=== PATIENT | female | born 1960 | race Caucasian/White ===

== ENCOUNTER → 2024-08-17 | Outpatient (CLI) | payer BC, SELFPAY ==
[2024-08-17 15:14] LABS: Absolute Lymphocyte Count 1.62 X10^3/uL (0.83-4.51); Absolute Neutrophil Count 3.7 X10^3/uL (2.0-7.7); Basophil# 0.07 X10^3/uL; Basophil% 1.2 % (0-1); Eosinophil# 0.05 X10^3/uL; Eosinophils% 0.8 % (0-5); Hematocrit 37.9 % (37-47); Hemoglobin 12.3 g/dL (12.0-15.0); Lymphocyte # 1.62 X10^3/ul (0.83-4.51); Lymphocyte % 27.5 % (19-41); Mean Corp Hgb Conc 32.5 g/dL (32-36); Mean Corpuscular Hgb 28.8 pg (27.0-32.0); Mean Corpuscular Volume 88.8 fL (81-99); Mean Platelet Vol. 8.7 fl (6.2-12.0); Monocyte# 0.48 X10^3/uL; Monocyte% 8.1 % (0-10); NRBC Flagged by Analyzer 0 % (0-5); Neutrophil # 3.65 X10^3/uL (2.7-7.7); Neutrophil % 62.1 % (47-70); Platelet Count 233 K/mm3 (150-450); RBC Distribution Width CV 15.4 % (11.6-14.6); RBC Distribution Width SD 49.6 fl (35.1-43.9); Red Blood Count 4.27 M/mm3 (4.2-5.4); White Blood Count 5.9 K/mm3 (4.4-11.0)
[2024-08-17 15:33] LABS: ALB/GLOB Ratio 1.1 RATIO (0.9-2.4); AST(SGOT) 20 U/L (15-37); Alanine Aminotransfer ALT/SGPT 29 U/L (13-56); Albumin, Serum 3.7 g/dL (3.2-5.0); Alkaline Phosphatase 119 U/L (45-117); Anion Gap 5 (5-15); BUN 22 mg/dL (7-18); BUN/Creat Ratio 27.7 RATIO (10-20); Calcium,Total 9.5 mg/dL (8.5-10.1); Chloride 107 mmol/L (98-107); Cholesterol 129 mg/dL (200); Creatinine, Serum 0.79 mg/dL (0.55-1.02); EST Glomerular Filtration Rate 78 mL/min (>60); Est Glom Filt Rate - Afr Amer 94 mL/min (>60); Globulin 3.5 g/dL (2.2-4.2); Glucose 94 mg/dL (74-106); High Density Lipoprotein 41 mg/dL; Potassium 4.4 mmol/L (3.5-5.1); Protein, Total 7.2 g/dL (6.4-8.2); Sodium Level 140 mmol/L (136-145); Triglycerides 195 mg/dL; Very Low Density Lipoprotein 39 mg/dL (5-40)
== END | disposition home or self-care (01) ==
LOC: BFHLAB 13:54
PROVIDERS: PCP Nurse Practitioner Family; Visit Provider Nurse Practitioner Family
DX: Z00.01 Encounter for general adult medical examination with abnormal findings (principal)
CPT/HCPCS: 36415; 80053; 80061; 85025

== ENCOUNTER → 2024-12-03 | Outpatient (CLI) | payer BC, SELFPAY | END | disposition home or self-care (01) | PROVIDERS: PCP Nurse Practitioner Family; Referring Provider Nurse Practitioner Family; Visit Provider Nurse Practitioner Family | DX: Z12.4 Encounter for screening for malignant neoplasm of cervix (principal) | CPT/HCPCS: 88175; G0145 ==

== ENCOUNTER → 2025-01-12 | Outpatient (CLI) | payer BC, SELFPAY ==
--- NOTE | 2025-01-12 08:04 | BI_ITS ---
EXAM: SCRN MAMM (CAD)W/ARLENE BILAT 01/12/2025 CLINICAL HISTORY: F, Age 64 y/o , SCREENING TECHNIQUE: Bilateral screening digital breast tomosynthesis with 2D and 3D images. Computer aided detection. COMPARISON: Prior exam(s) dated 10/26/2020, 03/18/2009. FINDINGS: TISSUE DENSITY: The breast tissue is composed of scattered area of fibroglandular density. Bilateral Breast Mammographic Findings: No significant masses, calcifications or other abnormalities are identified. BI/SCRN MAMM (CAD)W/ARLENE BILAT IMPRESSION: Right Breast: BIRADS 1 NEGATIVE. Left Breast: BIRADS 1 NEGATIVE. OVERALL FINAL ASSESSMENT: BIRADS 1 NEGATIVE. RECOMMENDATION: Routine annual follow-up in 1 Year A letter with findings and recommendations will be mailed to the patient. Reading Location: [id number]
== END | disposition home or self-care (01) ==
LOC: OPBI 08:03
PROVIDERS: PCP Nurse Practitioner Family; Referring Provider Nurse Practitioner Family; Visit Provider Nurse Practitioner Family
DX: Z12.31 Encounter for screening mammogram for malignant neoplasm of breast (principal)
CPT/HCPCS: 77063; 77067

== ENCOUNTER 2025-02-08 05:20 | Day surgery (SDC) | payer BC, SELFPAY ==
[2025-02-08] VITALS (7 sets, daily range): BP systolic 88–116; BP diastolic 59–71; PULSE 63–70; RESP 16; TEMP 36.1–36.6; O2SAT 96–99; BMI 27.5
[2025-02-08] MEDS: Lactated Ringers 1,000 ML 15 ML IV (05:56)
--- NOTE | 2025-02-08 06:18 | PRE.ANES_ITS ---
ASA Classification* ASA Classification ASA Classification: 1 Assessment & Plan Anesthesia* Anesthesia Assessment Anesthesia Assessment: Discussed sedation and/or anesthesia options, risks, benefits, and alternatives with patient/parents/legal guardian/POA. Questions invited. The patient/parents/legal guardian/POA seems to understand and agrees to proceed with anesthesia plan. Reviewed the physical assessment, medical history, allergy history and patient home medications list prior to surgery/procedure/anesthetic and documented any changes. Performed airway and anesthesia risk assessments. Anesthesia Type Anesthesia Type: MAC History Source History Obtained from:: Patient and Chart Anesthesia Focused Assessment* Temperature: 97.5 F Pulse Rate: 70 Blood Pressure: 116/71 Respiratory Rate: 16 Pulse Ox: 98 Oxygen Delivery Method: Room Air Airway Assessment Mouth opens: >3 cm Mallampati Score: II Teeth Condition: Chipped/Broken (Small chip on teeth number 8& 9.) Neck Range of motion (ROM): Full ROM Labs Anesthesia Preop lab: CBC WBC 5.9 K/mm3 (4.4-11.0) 08/17/24 13:56 08/17/24 RBC 4.27 M/mm3 (4.2-5.4) 08/17/24 13:56 08/17/24 Hgb 12.3 g/dL (12.0-15.0) 08/17/24 13:56 08/17/24 Hct 37.9 % (37-47) 08/17/24 13:56 08/17/24 Plt Count 233 K/mm3 (150-450) 08/17/24 13:56 08/17/24 CHEMISTRY Potassium 4.4 mmol/L (3.5-5.1) 08/17/24 13:56 08/17/24 Sodium 140 mmol/L (136-145) 08/17/24 13:56 08/17/24 BUN 22 mg/dL (7-18) H 08/17/24 13:56 08/17/24 Creatinine 0.79 mg/dL (0.55-1.02) 08/17/24 13:56 08/17/24 Glucose 94 mg/dL (74-106) 08/17/24 13:56 08/17/24 COAG Pre-Assessment Diagnosis/Proposed Procedure Planned Operative Procedure(s): COLONOSCOPY Anesthesia History 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 When Was Last Pacemaker Check QUESTION #4 FULL TEXT: You/Your Family Experience fever (hyperthermia) with Anesthesia Last Oral Intake Last Oral intake: Last Oral Intake NPO since 23:30 02/08/25 05:46 Meds taken in AM with sips of No 02/08/25 05:46 water? Meds patient instructed to take am of surgery PONV PONV - oceanographer physical: PONV - oceanographer physical Female Yes 02/03/25 14:49 HX of Motion Sickness No 02/03/25 14:49 HX of N/V After Surgery No 02/03/25 14:49 Non-Smoker Yes 02/03/25 14:49 Duration of Surgery greater No 02/03/25 14:49 than 60 minutes Number of Risk Factors 2 02/03/25 14:49 PONV Score Moderate Risk 02/03/25 14:49 Height & Weight Height & Weight: Anesthesia: Height & Weight Height 5 ft 2 in 02/08/25 05:46 Weight: 68.22 kg 02/08/25 05:46 Body Mass Index (BMI) 27.5 02/08/25 05:46 Respiratory Assessment Respiratory Assessment - oceanographer physical: Respiratory Tract Infection Hx - oceanographer physical Hx Respiratory Tract Infection No 02/03/25 14:49 STOP Sleep Apnea STOP Sleep Apnea - oceanographer physical: STOP Sleep Apnea - oceanographer physical Hx Hypertension No 02/03/25 14:49 Hx Sleep Apnea No 02/03/25 14:49 CPAP BIPAP Do you snore loudly (louder No 02/03/25 14:49 than talking or can be heard Do you often feel tired/ No 02/03/25 14:49 fatigued/ sleepy during daytime? Has anyone observed you stop No 02/03/25 14:49 breathing during sleep? STOP Results Negative 02/03/25 14:49 QUESTION #5 FULL TEXT : Do you snore loudly (louder than talking or can be heard through closed doors)? 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 Specify any problems Hx of Preganancy in last 3 No 02/03/25 14:49 Months Nurse Filling Out Transfusion [email or web address] 02/03/25 14:49 & Questions: Date: 02/03/25 02/03/25 14:49 Time: 14:52 02/03/25 14:49 Patient unable to answer at this time (ie. confused, unrespo /Reproduction History /Reproductive History - oceanographer physical: /Reproductive Hx- oceanographer physical Hx Now Gestational Age (in weeks): EDC: Hx Hx Para Hx Section SAB Active Medications Active Medications: Current Medications Generic Name Dose Route Start Last Admin Trade Name Freq PRN Reason Stop Dose Admin Lactated Ringer's 1,000 mls @ 15 mls/hr 02/08/25 05:30 02/08/25 05:56 IV 15 mls/hr .Q48H IVONNE Administration PFSH Medical History Non-smoker Home Medications ?Medication ?Instructions ?Recorded ?Last Taken ?Type NK 02/03/25 Unknown History Allergy/AdvReac Type Severity Reaction Status Date / Time No Known Allergies Allergy Verified 02/08/25 05:44 Surgical History (Updated 02/03/25 @ 14:54 by Balaji Retana) Hx of tonsillectomy Social History Smoking Status: Never smoker Review of Systems (Anesthesia) ROS Narrative System reviewed and no additional complaints, except as documented.
--- NOTE | 2025-02-08 06:30 | COLBX_PTH ---
PATIENT: BEN WOODS LOC: EN U#:[id number] AGE/SX: 64/F ROOM: RE02/08/[address]: Dr. Charles Martinez DO : 1960 BED: DIS: 02/08/2025 SPEC #: [id number] RECD: 02/08/25 09:08 STATUS: PADMINI PASTORSeth #: [id number] TEZ: 02/08/25 06:[address]: Charles Martinez DEPT: SURGICAL PATHOLOGY RECD BY: Irene Quiroz ENTERED: 02/08/25 11:09 SP TYPE: COLON BX OTHR DR: Janet Gomes, TOOLING SUPERVISOR-C Tissues: A - Cecum, NOS Procedures: Surgery Specimen Level IV HEADER OPERATION: Colonoscopy - open access with biopsy PRE-OP DIAGNOSIS: Encounter for screening colonoscopy TISSUE SUBMITTED: A. Cecum polyp MICROSCOPIC DIAGNOSIS A. Cecum, colon, polyp, biopsy: - Tubular adenoma. MICROSCOPIC DESCRIPTION Slides are reviewed. GROSS DESCRIPTION A. Received is one container labeled with the patient name and designated cecum polyp. The specimen consists of multiple irregular fragments of light das soft tissue that measures 0.1 - 0.4 cm. The specimen is totally submitted in one cassette. VANESSA/anita 02/08/2025 CPT: 78437
--- NOTE | 2025-02-08 06:57 | PCM.HP.STD ---
HPI - General General Date of Admission: 02/08/25 Date of Service: 02/08/25 Chief Complaint: Screening colonoscopy HPI Narrative BEN WOODS, is a 64 F who presents today for screening colonoscopy. She had a colonoscopy back in 2018 in [place]. She is not having any problems at this time. She denies any chest pain, shortness of breath. PFSH Medical History Non-smoker Home Medications ?Medication ?Instructions ?Recorded ?Last Taken ?Type NK 02/03/25 Unknown History Allergy/AdvReac Type Severity Reaction Status Date / Time No Known Allergies Allergy Verified 02/08/25 05:44 Surgical History Hx of tonsillectomy Social History Smoking Status: Never smoker ROS Constitutional Constitutional: Denies fatigue, fever(s), poor appetite, weight gain or weight loss Gastrointestinal Gastrointestinal: Denies belching, bloating, change in bowel habits, change in stool character, chewing difficulty, coffee ground emesis, constipation, cramping, diarrhea, dyspepsia, dysphagia, early satiety, excessive flatus, fecal incontinence, heartburn, hematemesis, hematochezia, hemorrhoids, loose stools, melena, nausea, odynophagia, rectal bleeding, tenesmus, vomiting or weight changes Vital Signs Vital Signs Vital Signs: 02/08/25 05:45 02/08/25 05:46 02/08/25 06:22 Temperature 97.5 F L 97.5 F L Temperature Source Temporal Pulse Rate 70 70 Respiratory Rate 16 16 Respiratory Pattern Normal Blood Pressure 116/71 116/71 Blood Pressure Mean 86 Blood Pressure Source Monitor Blood Pressure Position Semi-Fowlers Blood Pressure Location Left Arm Pulse Ox 98 98 Oxygen Delivery Method Room Air Room Air Weight Weight: 150 lb 6.4 oz Body Mass Index (BMI) 27.5 Physical Exam Const alert, oriented x3, no apparent distress and healthy appearing General Appearance: cooperative GI normal to inspection, nondistended, normoactive bowel sounds, soft to palpation, non-tender and non-distended Percussion: normal to percussion Rectal Exam: deferred Assessment & Plan Assessment/Plan (1) Encounter for screening colonoscopy: PLAN: She was explained alternatives, benefits, risk including not withstanding bleeding, infection, sepsis, perforation, need for surgery . She will have an ASA 3.
--- NOTE | 2025-02-08 07:25 | OP.COLON_ITS ---
Patient Name: Madelin De Los Santos Procedure Date: 02/08/2025 6:13 AM Date of : 1960 Age: 64 Procedure: Colonoscopy Indications: Screening for colorectal malignant neoplasm Providers: Charles Martinez DO Referring MD: Nathan Gramajo Medicines: Monitored Anesthesia Care Patient Profile: This is a 64 year old female. Refer to note in patient chart for documentation of history and physical. Last Colonoscopy: several years ago. Complications: No immediate complications. Procedure: Pre-Anesthesia Assessment: - Prior to the procedure, a History and Physical was performed, and patient medications and allergies were reviewed. The patient is competent. The risks and benefits of the procedure and the sedation options and risks were discussed with the patient. All questions were answered and informed consent was obtained. Patient identification and proposed procedure were verified by the physician in the pre-procedure area. Mental Status Examination: alert and oriented. Airway Examination: normal oropharyngeal airway and neck mobility. Respiratory Examination: clear to auscultation. CV Examination: normal. Prophylactic Antibiotics: The patient does not require prophylactic antibiotics. Prior Anticoagulants: The patient has taken no anticoagulant or antiplatelet agents. ASA Grade Assessment: II - A patient with mild systemic disease. After reviewing the risks and benefits, the patient was deemed in satisfactory condition to undergo the procedure. The anesthesia plan was to use monitored anesthesia care (MAC). Immediately prior to administration of medications, the patient was re-assessed for adequacy to receive sedatives. The heart rate, respiratory rate, oxygen saturations, blood pressure, adequacy of pulmonary ventilation, and response to care were monitored throughout the procedure. The physical status of the patient was re-assessed after the procedure. After I obtained informed consent, the scope was passed under direct vision. Throughout the procedure, the patient's blood pressure, pulse, and oxygen saturations were monitored continuously. The colonoscope was introduced through the anus and advanced to the cecum, identified by appendiceal orifice and ileocecal valve. The colonoscopy was performed without difficulty. The patient tolerated the procedure well. The quality of the bowel preparation was adequate. The ileocecal valve, appendiceal orifice, and rectum were photographed. Scope In: 7:08:01 AM Scope Withdrawal Time 0 hours 8 minutes 19 seconds Scope Out: 7:20:08 AM Total Procedure Duration Time 0 hours 12 minutes 7 seconds Findings: The perianal and digital rectal examinations were normal. A 5 mm polyp was found in the cecum. The polyp was sessile. The polyp was removed with a jumbo cold forceps. Resection and retrieval were complete. Verification of patient identification for the specimen was done. Estimated blood loss was minimal. The exam was otherwise without abnormality on direct and retroflexion views. Impression: - One 5 mm polyp in the cecum, removed with a jumbo cold forceps. Resected and retrieved. - The examination was otherwise normal on direct and retroflexion views. Recommendation: - Discharge patient to home. - Resume previous diet. - Continue present medications. - Await pathology results. - Repeat colonoscopy in 5 years for surveillance. Procedure Code(s): --- Professional --- 29385, Colonoscopy, flexible; with biopsy, single or multiple CPT copyright 2021 [employer]. All rights reserved. The codes documented in this report are preliminary and upon piece work inspector review may be revised to meet current compliance requirements. Charles Martinez DO 02/08/2025 7:25:06 AM This report has been signed electronically. Number of Addenda: 0 Note Initiated On: 02/08/2025 6:13 AM
--- NOTE | 2025-02-08 07:26 | OP.CCLET_ITS ---
02/08/2025 Nathan Gramajo Re : Colonoscopy procedure for Madelin De Los Santos Dear Eliseo This procedure was performed on Saturday, February 08, 2025. My impressions and recommendations are as follows: Impressions : - One 5 mm polyp in the cecum, removed with a jumbo cold forceps. Resected and retrieved. - The examination was otherwise normal on direct and retroflexion views. Recommendations : - Discharge patient to home. - Resume previous diet. - Continue present medications. - Await pathology results. - Repeat colonoscopy in 5 years for surveillance. My findings are described in the full procedure note, which is enclosed. If I can be of further assistance, please feel free to contact me at . Sincerely, Charles Martinez, 02/08/2025 7:25:06 AM This report has been signed electronically.
--- NOTE | 2025-02-08 07:28 | PCM.POST.ANE ---
Anesthesia: Postop Eval I Current Vital Signs Temperature: 97.5 F Pulse Rate: 64 Blood Pressure: 88/59 Respiratory Rate: 16 Pulse Ox: 96 Oxygen Delivery Method: Room Air Assessment Airway patent: Yes Spontaneous unlabored respirations: Yes Mental status: Asleep nausea: No Vomiting: No Anesthesia Complication: No Fluid Hydration Crystalloid volume administer (ml): 700 Total IV fluid infused: 700 Progress Note Anesthesia document: Postop Eval 1 completed: Yes
--- NOTE | 2025-02-08 14:51 | PCM.POSTANE2 ---
Anesthesia Postop Eval I Sum Postop Eval Completion status Anesthesia document: Postop Eval 1 completed: Yes Anesthesia Postop Eval I Summary Anesthesia Postop Eval I Summary: Anesthesia Postop Eval I: Assessment Summary Airway patent Yes 02/08/25 07:29 [email or web address] Spontaneous unlabored Yes 02/08/25 07:29 [email or web address] respirations Mental status Asleep 02/08/25 07:29 [email or web address] nausea No 02/08/25 07:29 [email or web address] Vomiting No 02/08/25 07:29 [email or web address] Anesthesia Postop Eval I: Fluid Summary Crystalloid volume administer 700 02/08/25 07:29 [email or web address] (ml) Colloids volume administered ( ml) Blood Product volume administered (ml) Total IV fluid infused 700 02/08/25 07:29 [email or web address] Anesthesia Postop Eval I: Summary Notes Anesthesia Complication No 02/08/25 07:29 [email or web address] Anesthesia Complication Comment: Post-operative progress note Anesthesia: Postop Eval II Evaluation Mental status: Awake and Calm Pain Level: 0 nausea: No Vomiting: No Complications Anesthesia Complication: No
== END 2025-02-08 08:04 | disposition home or self-care (01) ==
LOC: EN 05:20 → AC 05:21
PROVIDERS: PCP Nurse Practitioner Family; Referring Provider Nurse Practitioner Family; Visit Provider Internal Medicine Gastroenterology
PROC: 0DJD8ZZ Inspection of Lower Intestinal Tract, Via Natural or Artificial Opening Endoscopic (ICD-10-PCS; CPT 45378; principal; 2025-02-08 06:25)
DX: Z12.11 Encounter for screening for malignant neoplasm of colon (principal); D12.0 Benign neoplasm of cecum
CPT/HCPCS: 45380; 88305; J2405